=== PATIENT | male | born 1995 | race Caucasian/White ===

== ENCOUNTER 2020-01-17 10:52 | Emergency (ER) | payer OTHER ==
[~2020-01-17] VITALS: Ht 185.4 cm; Wt 106.8 kg
[2020-01-17 10:56] VITALS: BP 108/63; Ht 185.4 cm; Wt 106.8 kg
[2020-01-17] MEDS ORDERED: DICLOFENAC SODI50 MG PO (11:55)
== END 2020-01-17 12:29 | disposition home or self-care (01) ==
LOC: D.ER 10:52
DX: M25.572 Pain in left ankle and joints of left foot (principal); S93.402A Sprain of unspecified ligament of left ankle, initial encounter; X58.XXXA Exposure to other specified factors, initial encounter